=== PATIENT | male | born 1975 | race Caucasian/White ===

== ENCOUNTER 2016-09-17 22:16 | Emergency (ER) | payer MEDICAID ==
--- NOTE | ~2016-09-17 | CT2 ---
[facility] A Service of [facility] RADIOLOGY TEXT RESULTS PATIENT: CELINE VIVAS LOCATION: SED : 77 UNIT #: [id number] AGE: [address]: Edmund Keys MD SEX: M ORDER DR: [id number] [place] [id number] E MR#: [id number] Acc #: [id number] NAME: CELINE VIVAS : 1975 SEX: M STUDY DATE/TIME: 09/18/2016 0:08 UNIT: SED ROOM: STUDY DESCRIPTION: CT Abd and Pelv W Cont Attending Physician: Edmund Keys M.D. Ordering Physician: Edmund Keys M.D. Primary Care Physician: Neri Brizuela M.D. MEDICAL IMAGING REPORT This report is preliminary unless electronic signature is present. EXAM CT abdomen and pelvis INDICATIONS Generalized abdominal pain. Nausea, vomiting, diarrhea for [address] of the abdomen and pelvis utilizing 100 mL Isovue-370 IV contrast. Coronal and sagittal reconstructions were obtained. This CT exam was performed with one or more of the following radiation dose reduction techniques: Automatic exposure control, adjustment of mA and/or kV according to patient size, and iterative reconstruction. COMPARISON None available. FINDINGS ABDOMEN: Mild periportal edema is suspected. The liver is not enlarged. There is mild gallbladder wall thickening and/or a small amount of pericholecystic fluid. This is likely due to intrinsic liver process. The pancreas, spleen, adrenal glands, and kidneys are within normal limits. There is no hydronephrosis. The bowel is not dilated. The appendix is normal. PELVIS: No pelvic mass. Bladder is unremarkable. No enlarged pelvic or inguinal lymph nodes. There is a small umbilical hernia without complicating features. No acute osseous abnormalities. IMPRESSION 1. There appears to be some mild periportal edema. This is [facility] A Service of [facility] RADIOLOGY TEXT RESULTS PATIENT: CELINE VIVAS LOCATION: SED : 77 UNIT #: [id number] AGE: [address]: Edmund Keys MD SEX: M ORDER DR: nonspecific, however, is commonly seen in association with acute hepatic inflammation. I would recommend evaluation of the patient's liver function test. This finding is most commonly seen in association with acute hepatic inflammation (i.e. hepatitis). 2. Mild gallbladder wall thickening/gallbladder edema. This is probably due to the process in the liver, rather than acute gallbladder pathology. Dictated by... Les Martinez M.D. THIS IS AN ELECTRONICALLY VERIFIED REPORT Les Martinez M.D. at 09/18/2016 3:33 AM RPC/jocelin TD: 09/18/2016 02:01 JOB #: [id number] MEDICAL IMAGING REPORT Page 1 of 1
[~2016-09-17 22:16] MED LIST: ALDACTAZIDE; BACTRIM DS TABL1 TA1 PO; BACTROBAN15 GM TOP; CLINDAMYCIN HC300 MG PO; HCTZ PO; NORCO1 TAB 10/3 DOB; NORCO1 TAB 10/3 PO; TRAZODONE HCL150 MG PO; VOLTAREN50 MG PO; VOLTAREN75 MG PO
[2016-09-17 23:07] LABS: BASOPHIL% 0.6 % (0-2.5); EOSINOPHIL# 0.3 X10e3 (0-0.7); EOSINOPHIL% 4.8 % (0.0-7.0); HEMATOCRIT 41.9 % (38.0-50.0); HEMOGLOBIN 14.3 gm/dL (13.0-16.0); LYMPHOCYTE# 1.3 X10e3 (1.0-3.5); LYMPHOCYTE% 23.5 % (17.0-45.0); MEAN CELL VOLUME 87.8 FL (83-96); MEAN CORPUSCULAR HGB CONC 34.1 g/dL (30-36); MEAN PLATELET VOLUME 7.8 FL (6.5-11.5); MONOCYTE# 0.8 X10e3 (0-1.0); MONOCYTE% 14.4 % (3.0-12.0); NEUTROPHIL# 3.2 X10e3 (1.5-7.1); NEUTROPHIL% 56.7 % (40-75); PLATELET COUNT 146 X10e3 (140-420); RED BLOOD COUNT 4.77 X10e (3.90-5.60); RED CELL DISTRIBUTION WIDTH 13.7 % (11.0-15.5); WHITE BLOOD COUNT 5.7 X10e3 (4.0-10.5)
[2016-09-17 23:10] LABS: DIFF IND NO
[2016-09-17 23:30] LABS: ALBUMIN SERUM 3.8 g/dL (3.5-5.0); BILIRUBIN, DIRECT 2.3 mg/dL (0.0-0.2); BILIRUBIN,INDIRECT 1.4 mg/dL (0.0-0.9); BILIRUBIN,TOTAL 3.7 mg/dL (0.2-2.0); BUN/CREATININE RATIO 17.77; CALCIUM SERUM 9.2 mg/dL (8.4-10.2); CREATININE SERUM 0.9 mg/dL (0.6-1.4); GLOM FILT RATE Estimated 106.5 mL/min (>60); POTASSIUM 3.5 mmol/L (3.5-5.1); PROTEIN TOTAL SERUM 7.9 g/dL (6.0-8.3)
[2016-09-18 00:02] LABS: AMYLASE 14 U/L (0-46); LIPASE 27 U/L (22-51)
[2016-09-18 00:06] LABS: URINE SOURCE CLEAN CATCH
[2016-09-18 00:08] LABS: URINE APPEARANCE CLEAR; URINE BLOOD TRACE-LYSED (NEG); URINE COLOR DK YELLOW; URINE KETONE TRACE (NEG); URINE LEUKOCYTE ESTERASE NEG (NEG); URINE NITRATE NEG (NEG); URINE PROTEIN 1+ (NEG); URINE SPECIFIC GRAVITY >=1.030 (1.003-1.035)
[2016-09-18 00:10] LABS: MICRO INDICATED? YES; URINE BILIRUBIN POS (NEG); URINE GLUCOSE 50 MG/DL (NORM)
[2016-09-18 00:13] LABS: CULTURE INDICATED? NO; URINE BACTERIA NEG (NEG); URINE MUCUS PRESENT; URINE SQUAMOUS EPITHELIAL CELL OCCAS /[HPF]; URINE TRANSITIONAL EPI CELLS FEW /[HPF]; URINE WBC 0-2 /[HPF] (0-5)
== END 2016-09-18 01:49 | disposition home or self-care (01) ==
LOC: SED 22:16
PROVIDERS: Emergency Medicine
DX: K75.9 Inflammatory liver disease, unspecified (principal); F17.210 Nicotine dependence, cigarettes, uncomplicated; Z79.2 Long term (current) use of antibiotics; Z79.899 Other long term (current) drug therapy; Z88.0 Allergy status to penicillin; Z88.2 Allergy status to sulfonamides
CPT/HCPCS: 36415; 74177; 80048; 80076; 81003; 82150; 83690; 85025; 96361; 96374; 99284; G0480; J2405; Q9967